=== PATIENT | female | born 1960 | race Caucasian/White ===

== ENCOUNTER → 2017-04-16 | Outpatient (CLI) | payer OTHER ==
[~2017-04-16] MED LIST: ASPI1TAB31 PO; ASPI325T17 PO; CARI350T PO; CEPH-368 PO; CLON1TAB PO; DIAZ10TA PO; DULO60CA7 PO; HYDR200T PO; METH-356 PO; MORP15TA3 PO; OMEP20CA9 PO; OXYC-306 PO; OXYC-307 PO; OXYC20TA2 PO; PILO5TAB PO; VENL75CA PO; ZOLP-413 PO; [UNRECOGNIZED DRUG - OTHER] PO
[2017-04-16 14:39] LABS: MICROSCOPIC INDICATED
[2017-04-16 14:42] LABS: MEAN CORPUSCULAR HEMOGLOBIN 33.3 pg (27.0-34.8); MEAN CORPUSCULAR HGB CONC 34.2 g/dL (32.4-35.8); MEAN CORPUSCULAR VOLUME 97.4 fL (80-100); MEAN PLATELET VOLUME 7.5 fL (7.4-10.4); PLATELET COUNT 216 x10^3/uL (130-400); RED BLOOD COUNT 4.36 x10^6/uL (3.82-5.3); RED CELL DISTRIBUTION WIDTH 13.1 % (9.6-15.2)
[2017-04-16 14:45] LABS: ANION GAP 8 mmol/L (5-15); CALCIUM 8.3 mg/dL (8.5-10.1); CHLORIDE 105 mmol/L (98-107); CREATININE 0.84 mg/dL (0.55-1.02)
[2017-04-16 14:56] LABS: CULTURE INDICATED? YES
[2017-04-16 15:08] LABS: MD YES
[2017-04-16 15:11] LABS: <PLATELET ESTIMATE> ADEQUATE; <PLT MORPHOLOGY> NORMAL PLT MORPH; <RBC MORPHOLOGY> NORMAL; EOS#(MANUAL) 0.68 x10^3/uL (0.0-0.4); EOS% (MANUAL) 9 % (1-7); LYMPH#(MANUAL) 5.09 x10^3/uL (1-3.4); LYMPHS% (MANUAL) 67 % (22-44); MONOS#(MANUAL) 0.23 x10^3/uL (0.3-2.7); MONOS% (MANUAL) 3 % (2-9); REACTIVE LYMPHS # (MANUAL) 0.15 x10^3/uL (0-0); REACTIVE LYMPHS % (MANUAL) 2 % (0-0); SEG#(MANUAL) 1.44 x10^3/uL (1.8-6.8); SEGS% (MANUAL) 19 % (42-75)
[2017-04-16 15:12] LABS: SMUDGE CELLS 1+
== END ==
LOC: STAR 13:24
PROVIDERS: ATTEND Orthopaedic Surgery
DX: M25.561 Pain in right knee (principal); Z96.651 Presence of right artificial knee joint
CPT/HCPCS: 36415; 80048; 81001; 85025; 87081; 87086; 93005

== ENCOUNTER 2017-04-25 08:48 | Inpatient (IN) | payer OTHER ==
[~2017-04-25] VITALS: Ht 165.1 cm; Wt 71.0 kg
[2017-04-25] MEDS ORDERED: SCOPOLAMINE PATCH, 1.5MG PATCH.TD72 TD STA (11:23)
[2017-04-25] MEDS ORDERED: LACTATED RINGERS 1,000 ML IV SCH (11:23)
[2017-04-25 11:26] VITALS: BP 105/80
[2017-04-25] MEDS ORDERED: GABAPENTIN 400 MG CAPSULE PO ONE (11:30)
[2017-04-25] MEDS ORDERED: SCOPOLAMINE PATCH, 1.5MG PATCH.TD72 TD ONE ×3 (11:30→13:30)
[2017-04-25] MEDS ORDERED: GABAPENTIN 300 MG CAPSULE ONE (11:30)
[2017-04-25] MEDS ORDERED: VANCOMYCIN PER PHARMACY MC ONE (11:34)
[2017-04-25] MEDS ORDERED: LIDOCAINE-MPF 1%, 2ML ONE (11:40)
[2017-04-25] MEDS ORDERED: MIDAZOLAM 1 MG/ML, 2ML ONE (11:42)
[2017-04-25] MEDS ORDERED: KETAMINE 10 MG/ML, 20ML ONE (11:42)
[2017-04-25] MEDS ORDERED: FENTANYL PF 250 MCG/5ML ONE (11:42)
[2017-04-25] MEDS ORDERED: DEXAMETHASONE 4 MG/ML, 1ML ONE (11:43)
[2017-04-25] MEDS ORDERED: ONDANSETRON 2MG/ML, 2ML ONE (11:43)
[2017-04-25] MEDS ORDERED: CEFAZOLIN 1,000 MG ONE (11:43)
[2017-04-25] MEDS ORDERED: PROPOFOL 10 MG/ML, 20ML ONE (11:43)
[2017-04-25] MEDS ORDERED: BUPIVACAINE/PF 0.25% ONE (11:43)
[2017-04-25] MEDS ORDERED: LIDOCAINE 1%, 2ML SQ PRN (12:00)
[2017-04-25] MEDS ORDERED: PHARMACOKINETIC CONSULTATION MC ONE (12:00)
[2017-04-25] MEDS ORDERED: VANCOMYCIN 1,200 MG in SODIUM CHLORIDE 0.9% 250 ML IV ONE (12:00)
[2017-04-25] MEDS ORDERED: GABAPENTIN 300 MG CAPSULE PO ONE (12:00)
[2017-04-25] MEDS ORDERED: KETOROLAC 60 MG/2 ML ONE (12:59)
[2017-04-25] MEDS ORDERED: TRANEXAMIC ACID 100 MG/ML, 10ML ONE ×2 (12:59)
[2017-04-25] MEDS ORDERED: ROPIvacaine/PF 0.2%, 20 ML ONE (13:00)
[2017-04-25] MEDS ORDERED: VANCOMYCIN 1,000 MG ONE (13:00)
[2017-04-25] MEDS ORDERED: EPINEPHRINE 1 MG/ML, 1ML ONE (13:00)
[2017-04-25] MEDS ORDERED: SODIUM CHLORIDE 0.9% 100 ML ONE (13:00)
[2017-04-25] MEDS ORDERED: SUCCINYLCHOLINE 20 MG/ML, 10ML ONE (13:08)
[2017-04-25] MEDS ORDERED: ROCURONIUM 10 MG/ML,10ML ONE (13:08)
[2017-04-25] MEDS ORDERED: ASA/APAP/ CAFFEINE TABLET PO SCH (13:30)
[2017-04-25] MEDS ORDERED: MAGNESIUM HYDROXIDE 8%, 30ML UDC PO PRN (13:30)
[2017-04-25] MEDS ORDERED: ONDANSETRON 4 MG TABLET PO PRN (13:30)
[2017-04-25] MEDS ORDERED: BISACODYL 10 MG SUPP PR PRN (13:30)
[2017-04-25] MEDS ORDERED: SENNA/DOCUSATE TABLET PO PRN (13:30)
[2017-04-25] MEDS ORDERED: ZOLPIDEM 5MG TABLET PO PRN (13:30)
[2017-04-25] MEDS ORDERED: HYDROmorphone 1 MG/ML, 1ML IV PRN (13:30)
[2017-04-25] MEDS ORDERED: OMEPRAZOLE 20 MG CAPSULE.DR PO PRN (13:30)
[2017-04-25] MEDS ORDERED: ACETAMINOPHEN 650 MG/20.3 ML UDC PO PRN (13:30)
[2017-04-25] MEDS ORDERED: DIPHENHYDRAMINE 50 MG CAPSULE PO PRN (13:30)
[2017-04-25] MEDS ORDERED: ONDANSETRON 2MG/ML, 2ML IV PRN (13:30)
[2017-04-25] MEDS ORDERED: HYDROcodone/APAP 5/325 TABLET PO PRN (13:30)
[2017-04-25] MEDS ORDERED: MEPERIDINE/PF 50 MG/ML ONE (13:44)
[2017-04-25] MEDS ORDERED: METOCLOPRAMIDE 5 MG/ML, 2ML ONE (14:54)
[2017-04-25] MEDS ORDERED: LIDOCAINE-MPF 2% ,5ML ONE ×2 (14:54)
[2017-04-25] MEDS ORDERED: KETOROLAC 30 MG/1 ML ONE (14:54)
[2017-04-25] MEDS ORDERED: morphine SULFATE 10 MG/ML, 1ML ONE (15:57)
[2017-04-25] MEDS ORDERED: OXYcodone 5 MG/5 ML ORAL.SOL UDC ONE (15:57)
[2017-04-25] MEDS ORDERED: ALBUTEROL/IPRATROPIUM 2.5MG/0.5MG, 3 ML NPPB PRN (16:00)
[2017-04-25] MEDS ORDERED: LABETALOL 5MG/ML, 20ML IV PRN (16:00)
[2017-04-25] MEDS ORDERED: hydrALAzine 20 MG/ML, 1ML IV PRN (16:00)
[2017-04-25] MEDS ORDERED: MIDAZOLAM 1 MG/ML, 2ML IV PRN (16:00)
[2017-04-25] MEDS ORDERED: PROMETHAZINE 25 MG/ML, 1ML IV PRN (16:00)
[2017-04-25] MEDS ORDERED: ROPIvacaine/PF 0.2%, 100ML 550 ML (check volume) INJ ONE (16:00)
[2017-04-25] MEDS ORDERED: OXYcodone 5 MG/5 ML ORAL.SOL UDC PO PRN (16:00)
[2017-04-25] MEDS ORDERED: FENTANYL PF 100 MCG/2ML IV PRN (16:00)
[2017-04-25] MEDS ORDERED: LORazepam 2 MG/ML, 1ML IVPush PRN (16:00)
[2017-04-25] MEDS ORDERED: MEPERIDINE/PF 25MG/0.5ML IVPush PRN (16:00)
[2017-04-25] MEDS ORDERED: ONDANSETRON 2MG/ML, 2ML IVPush PRN (16:00)
[2017-04-25] MEDS ORDERED: DIAZEPAM 5 MG/ML, 2ML IVPush PRN (16:00)
[2017-04-25] MEDS: morphine SULFATE 10 MG/ML, 1ML IV PRN ×2 (16:05→16:32)
[2017-04-25] MEDS: ASPIRIN 81 MG TABLET EC PO SCH (18:05)
[2017-04-25] MEDS: NS + 20MEQ KCL 1,000 ML IV SCH (18:37)
[2017-04-25] MEDS: CEFAZOLIN PMX 2GM/50ML 50 ML IVPB SCH (20:52)
[2017-04-25] MEDS: OXYcodone IR 5MG TABLET PO PRN (20:53)
[2017-04-25] MEDS: DOCUSATE 100 MG CAPSULE PO SCH (20:53)
[2017-04-25] MEDS ORDERED: ZOLPIDEM 5MG TABLET PO SCH (21:00)
[2017-04-26] VITALS: BP 103/51
[2017-04-26] MEDS: NS + 20MEQ KCL 1,000 ML IV SCH (01:36)
[2017-04-26] MEDS: OXYcodone IR 5MG TABLET PO PRN ×3 (02:15→09:42)
[2017-04-26 04:24] VITALS: BP 104/61
[2017-04-26] MEDS ORDERED: DEXAMETHASONE 4 MG/ML, 1ML IVPush SCH (06:00)
[2017-04-26] MEDS: CEFAZOLIN PMX 2GM/50ML 50 ML IVPB SCH (06:07)
[2017-04-26] MEDS: ASPIRIN 81 MG TABLET EC PO SCH (06:08)
[2017-04-26] MEDS: DOCUSATE 100 MG CAPSULE PO SCH (08:49)
[2017-04-26] MEDS ORDERED: METHADONE 10 MG TABLET PO SCH (09:00)
[2017-04-26] MEDS ORDERED: CARISOPRODOL 350 MG TABLET PO SCH (09:00)
[2017-04-26] MEDS ORDERED: HYDROXYCHLOROQUINE 200 MG TABLET PO SCH (09:00)
[2017-04-26] MEDS ORDERED: DULOXETINE 30 MG CAPSULE.DR PO SCH (09:00)
[2017-04-26 09:50] VITALS: BP 125/77
== END 2017-04-26 10:05 | disposition home or self-care (01) | DRG 468 ==
LOC: ORIP 10:55 → EDSTATUS 14:30 → 4NOR 17:19
PROVIDERS: ADMIT Orthopaedic Surgery; ATTEND Orthopaedic Surgery
PROC: 0SWC0JZ Revision of Synthetic Substitute in Right Knee Joint, Open Approach (ICD-10-PCS; principal; 2017-04-25 14:30)
DX: T84.022A Instability of internal right knee prosthesis, initial encounter (principal); Z96.651 Presence of right artificial knee joint; Y83.8 Other surgical procedures as the cause of abnormal reaction of the patient, or of later complication, without mention of misadventure at the time of the procedure; Y92.89 Other specified places as the place of occurrence of the external cause
CPT/HCPCS: 36415; 85014; 85018; 87070; 87075; 87205; C1713; J0171; J0690; J1100; J1885; J2175; J2250; J2405; J2704; J2795; J3010; J3370; J3480; J3490; C1762; C1776; J0330; J2270; J2765; J7050; J7120

== ENCOUNTER 2020-05-29 11:09 | Outpatient (CLI) | payer OTHER ==
[~2020-05-29 11:09] MED LIST changes: -HYDR200T PO; +HYDR200T72 PO; -METH-356 PO; +METH10TA2 PO; +MORP-29 PO; -MORP15TA3 PO; -OXYC-306 PO; -OXYC-307 PO; +OXYC-380 PO; +OXYC1TAB17 PO
[2020-05-29 12:23] LABS: MEAN CORPUSCULAR HEMOGLOBIN 33.7 pg (27.0-34.8); MEAN CORPUSCULAR HGB CONC 34.7 g/dL (32.4-35.8); PLATELET COUNT 185 x10^3/uL (130-400); RED BLOOD COUNT 4.29 x10^6/uL (3.82-5.3); RED CELL DISTRIBUTION WIDTH 12.5 % (9.6-15.2)
[2020-05-29 12:28] LABS: ANION GAP 4 mmol/L (5-15); CALCIUM 8.7 mg/dL (8.5-10.1); CHLORIDE 107 mmol/L (98-107); CREATININE 0.78 mg/dL (0.55-1.02)
[2020-05-29] MEDS ORDERED: OXYC-380 PO (12:50)
[2020-05-29] MEDS ORDERED: RIZA10TA5 PO (12:50)
[2020-05-29] MEDS ORDERED: QUET100T PO (12:50)
[2020-05-29] MEDS ORDERED: EREN70AU2 INJ (12:50)
[2020-05-29] MEDS ORDERED: ALEN70TA77 PO (12:50)
[2020-05-29] MEDS ORDERED: ESTR1TAB15 PO (12:52)
[2020-05-29 13:15] LABS: INTERNATIONAL NORMALIZED RATIO 0.94 (0.93-1.1); PROTHROMBIN TIME 10.1 Seconds (9.6-11.5)
[2020-05-29 13:33] LABS: LYMPH#(MANUAL) 6.32 x10^3/uL (1-3.4); LYMPHS% (MANUAL) 79 % (22-44); MD YES; MONOS#(MANUAL) 0.24 x10^3/uL (0.3-2.7); MONOS% (MANUAL) 3 % (2-9); SEG#(MANUAL) 1.12 x10^3/uL (1.8-6.8); SEGS% (MANUAL) 14 % (42-75)
[2020-05-29 13:34] LABS: <PLATELET ESTIMATE> ADEQUATE; <PLT MORPHOLOGY> NORMAL PLT MORPH; <RBC MORPHOLOGY> NORMAL; BASOS#(MANUAL) 0.08 x10^3/uL (0-0.1); BASOS% (MANUAL) 1 % (0-1); EOS#(MANUAL) 0.24 x10^3/uL (0.0-0.4); EOS% (MANUAL) 3 % (1-7)
== END 2020-05-29 23:59 | disposition home or self-care (01) ==
LOC: STAR 11:09
PROVIDERS: ATTEND Orthopaedic Surgery
DX: Z01.812 Encounter for preprocedural laboratory examination (principal); Z20.822 Contact with and (suspected) exposure to COVID-19; Z01.818 Encounter for other preprocedural examination; M17.12 Unilateral primary osteoarthritis, left knee; Z79.01 Long term (current) use of anticoagulants
CPT/HCPCS: 36415; 80048; 83036; 85025; 85610; 85730; 87081; 93005; U0003

== ENCOUNTER 2020-06-02 10:27 | Day surgery (SDC) | payer OTHER ==
[~2020-06-02] VITALS: Ht 165.1 cm; Wt 74.7 kg
[~2020-06-02 10:27] MED LIST changes: +ALEN70TA77 PO; +BISACODYL 10 MG SUPP PR PRN; +CARISOPRODOL 350 MG TABLET PO SCH; +CEFAZOLIN PMX 2GM/50ML 50 ML IVPB SCH; +DIPHENHYDRAMINE 50 MG CAPSULE PO PRN; +DOCUSATE 100 MG CAPSULE PO SCH; +EPINEPHRINE 1 MG/ML, 1ML ONE; +EREN70AU2 INJ; +ESTR1TAB15 PO; +HYDROcodone/APAP 5/325 TABLET PO PRN; +HYDROmorphone 1 MG/ML, 1ML INJ IV PRN; +KETOROLAC 60 MG/2 ML ONE; +MAGNESIUM HYDROXIDE 8%, 30ML UDC PO PRN; +NS + 20MEQ KCL 1,000 ML IV SCH; +ONDANSETRON 2MG/ML, 2ML IV PRN; +ONDANSETRON 4 MG TABLET PO PRN; +OXYcodone IR 5MG TABLET PO PRN; +QUET100T PO; +QUETIAPINE 100MG TABLET PO SCH; +RIZA10TA5 PO; +ROPIvacaine/PF 0.5%, 20 ML ONE; +ROPIvacaine/PF 0.5%, 30 ML ONE; +SENNA/DOCUSATE TABLET PO PRN; +TRANEXAMIC ACID 100 MG/ML, 10ML ONE; +VANCOMYCIN 1,000 MG ONE; +ZOLPIDEM 5MG TABLET PO PRN
[2020-06-02 10:51] VITALS: BP 142/84
[2020-06-02] MEDS ORDERED: GABAPENTIN 300 MG CAPSULE PO ONE (11:00)
[2020-06-02] MEDS ORDERED: LACTATED RINGERS 1,000 ML IV SCH (11:00)
[2020-06-02] MEDS ORDERED: LIDOCAINE-MPF 1%, 2ML INFIL ONE (11:00)
[2020-06-02] MEDS ORDERED: CHLORHEXIDINE 15 ML UDC PO ONE (11:00)
[2020-06-02] MEDS ORDERED: ACETAMINOPHEN 500 MG TABLET PO ONE (11:00)
[2020-06-02] MEDS ORDERED: CHLORHEXIDINE 15 ML UDC ONE (11:06)
[2020-06-02] MEDS ORDERED: MIDAZOLAM 1 MG/ML, 2ML ONE (11:08)
[2020-06-02] MEDS ORDERED: FENTANYL PF 250 MCG/5ML ONE (11:08)
[2020-06-02] MEDS ORDERED: CEFAZOLIN 1,000 MG ONE (11:09)
[2020-06-02] MEDS ORDERED: GLYCOPYRROLATE 0.2MG/1ML, 5ML ONE (11:09)
[2020-06-02] MEDS ORDERED: ONDANSETRON 2MG/ML, 2ML ONE (11:09)
[2020-06-02] MEDS ORDERED: NEOSTIGMINE 1 MG/ML, 10ML ONE (11:09)
[2020-06-02] MEDS ORDERED: PROPOFOL 10 MG/ML, 20ML ONE (11:09)
[2020-06-02] MEDS ORDERED: ROCURONIUM 10MG/ML,5ML ONE (11:09)
[2020-06-02] MEDS ORDERED: ACETAMINOPHEN 325 MG TABLET PO PRN (12:30)
[2020-06-02] MEDS ORDERED: PROMETHAZINE 25 MG/ML, 1ML IVPush PRN (12:30)
[2020-06-02] MEDS ORDERED: MEPERIDINE/PF 25MG/0.5ML IVPush PRN (12:30)
[2020-06-02] MEDS ORDERED: morphine SULFATE 10 MG/ML, 1ML IVPush PRN (12:30)
[2020-06-02] MEDS ORDERED: HALOPERIDOL 5 MG/ML IV PRN (12:30)
[2020-06-02] MEDS ORDERED: OXYcodone 5 MG/5 ML ORAL.SOL UDC PO PRN (12:30)
[2020-06-02] MEDS ORDERED: LABETALOL 5MG/ML, 20ML IV PRN (12:30)
[2020-06-02] MEDS ORDERED: hydrALAzine 20 MG/ML, 1ML IV PRN (12:30)
[2020-06-02] MEDS ORDERED: FENTANYL PF 100 MCG/2ML ONE ×4 (13:24→14:36)
[2020-06-02] MEDS ORDERED: DIPHENHYDRAMINE 25 MG CAPSULE PO PRN (14:00)
[2020-06-02] MEDS: FENTANYL PF 100 MCG/2ML IV PRN ×4 (14:28→14:54)
[2020-06-02] MEDS ORDERED: OXYcodone 5 MG/5 ML ORAL.SOL UDC ONE (14:30)
[2020-06-02] MEDS ORDERED: HYDROmorphone 1 MG/ML, 1ML INJ ONE (14:57)
[2020-06-02] MEDS: HYDROmorphone 1 MG/ML, 1ML INJ IVPush PRN ×2 (15:00→15:58)
[2020-06-02] MEDS ORDERED: HYDROmorphone 2 MG/ML, 1ML ONE (15:52)
[2020-06-02] MEDS ORDERED: ASPIRIN 81 MG TABLET EC PO SCH (18:00)
[2020-06-03] MEDS ORDERED: DEXAMETHASONE 4 MG/ML, 1ML IVPush SCH (06:00)
== END 2020-06-02 17:20 | disposition home or self-care (01) ==
LOC: OUT 10:27
PROVIDERS: ATTEND Orthopaedic Surgery
DX: M17.12 Unilateral primary osteoarthritis, left knee (principal); M25.762 Osteophyte, left knee; G89.18 Other acute postprocedural pain; M81.0 Age-related osteoporosis without current pathological fracture; K21.9 Gastro-esophageal reflux disease without esophagitis; M35.00 Sjogren syndrome, unspecified; G43.909 Migraine, unspecified, not intractable, without status migrainosus; Z79.899 Other long term (current) drug therapy; Z79.891 Long term (current) use of opiate analgesic; Z87.891 Personal history of nicotine dependence; Z88.2 Allergy status to sulfonamides; Z88.8 Allergy status to other drugs, medicaments and biological substances; Z96.651 Presence of right artificial knee joint; Z82.49 Family history of ischemic heart disease and other diseases of the circulatory system
CPT/HCPCS: 27447; 64447; 97110; 97116; 97161; 97165; C1713; C1776; J0171; J0690; J1170; J1885; J2250; J2405; J2704; J2710; J2795; J3010; J3370; J7120